=== PATIENT | female | born 1985 | race Caucasian/White ===

== ENCOUNTER 2017-03-27 12:13 | Emergency (ER) | payer OTHER ==
[~2017-03-27] VITALS: Ht 165.1 cm; Wt 83.9 kg
[2017-03-27 12:17] VITALS: Ht 165.1 cm; Wt 83.9 kg
[2017-03-27 15:02] VITALS: BP 140/73
== END 2017-03-27 15:02 | disposition home or self-care (01) ==
LOC: ED 12:13
DX: S29.012A Strain of muscle and tendon of back wall of thorax, initial encounter (principal); X58.XXXA Exposure to other specified factors, initial encounter; Y93.89 Activity, other specified; Y92.89 Other specified places as the place of occurrence of the external cause; Y99.8 Other external cause status
CPT/HCPCS: J1885